=== PATIENT | male | born 1950 ===

== ENCOUNTER 2017-12-16 08:50 | Outpatient (CLI) | payer OTHER ==
[~2017-12-16] VITALS: Ht 152.4 cm; Wt 108.9 kg
== END 2017-12-16 09:10 | disposition home or self-care (01) ==
LOC: OFIC 805 08:50
DX: H61.23 Impacted cerumen, bilateral (principal); H90.3 Sensorineural hearing loss, bilateral; J31.0 Chronic rhinitis